=== PATIENT | female | born 1945 | race Caucasian/White ===

== ENCOUNTER 2020-01-24 12:21 | Emergency (ER) | payer OTHER, SELFPAY ==
[~2020-01-24] VITALS: Ht 157.5 cm; Wt 72.6 kg
[2020-01-24 12:23] VITALS: Ht 157.5 cm; Wt 72.6 kg
[2020-01-24 14:08] VITALS: BP 126/69
== END 2020-01-24 14:08 | disposition home or self-care (01) ==
LOC: ED 12:21
DX: J02.0 Streptococcal pharyngitis (principal); I10 Essential (primary) hypertension; E11.9 Type 2 diabetes mellitus without complications; Z20.828 Contact with and (suspected) exposure to other viral communicable diseases; Z98.890 Other specified postprocedural states
CPT/HCPCS: U0003-CS